=== PATIENT | male | born 1950 | race Caucasian/White ===

== ENCOUNTER 2018-03-15 13:51 | Day surgery (SDC) | payer MEDICARE, MEDICAID ==
[~2018-03-15] VITALS: Ht 170.2 cm; Wt 81.8 kg
[2018-03-15 14:10] VITALS: BP 121/84
[2018-03-15] MEDS ORDERED: ASPI-12 PO (14:17)
[2018-03-15] MEDS ORDERED: HCTZ25T (14:18)
[2018-03-15] MEDS ORDERED: COLC0.6T69 PO (14:18)
[2018-03-15] MEDS ORDERED: LOSA25TA12 PO ×2 (14:19→14:20)
[2018-03-15] MEDS ORDERED: AMIT25TA10 PO (14:24)
[2018-03-15] MEDS ORDERED: CARV3.122 PO (14:25)
[2018-03-15] MEDS ORDERED: DOCU-28 PO ×2 (14:26→14:30)
[2018-03-15] MEDS ORDERED: fentaNYL/PF 50MCG/1 ML 2ML syringe ONE (14:27)
[2018-03-15] MEDS ORDERED: LIDOcaine Viscous 15ml cup ONE (14:28)
[2018-03-15] MEDS ORDERED: MIDAZolam 5mg/5ml vial ONE (14:28)
[2018-03-15] MEDS ORDERED: MULT-1172 (14:28)
[2018-03-15] MEDS ORDERED: GINK30CA3 (14:29)
[2018-03-15] MEDS ORDERED: ATOR20TA66 PO (14:29)
[2018-03-15 14:56] VITALS: BP 108/75
[2018-03-15 15:06] VITALS: BP 104/72
[2018-03-15 15:16] VITALS: BP 115/70
[2018-03-15 15:26] VITALS: BP 118/72
== END 2018-03-15 15:40 | disposition home or self-care (01) ==
LOC: GI LAB 13:51 → EDSEX 13:51 → GI LAB 15:40
PROVIDERS: ATTEND Internal Medicine Gastroenterology
DX: K44.9 Diaphragmatic hernia without obstruction or gangrene (principal); K29.50 Unspecified chronic gastritis without bleeding; K21.0 Gastro-esophageal reflux disease with esophagitis
CPT/HCPCS: 43239; G0500; J2250; J3010; J7030; 88305; 88342; 99152; A4620